=== PATIENT | female | born 1940 ===

== ENCOUNTER 2017-09-30 07:29 | Day surgery (SDC) | payer MEDICARE ==
[2015-04-05 07:50] VITALS: BMI 24.7
[2017-09-30] MEDS ORDERED: Propofol 10 mg/ml Inj (20 ML) ONE (10:04)
[2017-09-30] MEDS ORDERED: Lactated Ringer's 1,000 ML IV ONE (10:10)
[2017-09-30 10:53] VITALS: TEMP 98.1
[2017-09-30 11:32] VITALS: O2SAT 100
[2017-09-30 13:32] VITALS: BP 131/67; PULSE 66; RESP 15
== END 2017-09-30 12:15 | disposition home or self-care (01) ==
LOC: C.ENDO 07:29
PROVIDERS: ATTEND Internal Medicine Gastroenterology
DX: Z12.11 Encounter for screening for malignant neoplasm of colon (principal); K64.1 Second degree hemorrhoids; K21.0 Gastro-esophageal reflux disease with esophagitis; K29.50 Unspecified chronic gastritis without bleeding; K31.89 Other diseases of stomach and duodenum; I10 Essential (primary) hypertension; M19.90 Unspecified osteoarthritis, unspecified site; Z98.890 Other specified postprocedural states; Z90.710 Acquired absence of both cervix and uterus; Z79.899 Other long term (current) drug therapy
CPT/HCPCS: 43239; 88305; G0121; J2001; J2704; J7120